=== PATIENT | male | born 1985 | race Caucasian/White ===

== ENCOUNTER 2023-03-22 18:48 | Emergency (ER) | payer OTHER, SELFPAY ==
--- NOTE | ~2023-03-22 | CT_ITS ---
EXAMINATION: CT cervical spine wo con DATE: 03/22/2023 19:33 INDICATION: Neck pain prior cervical spine fracture TECHNIQUE: Computed tomography (CT) of the cervical spine was performed without intravenous contrast. Automated exposure control and iterative reconstruction technique were employed. The dose-length pro duct was 383.16 mGy-cm. COMPARISON: None. FINDINGS: Vertebral Body Alignment: Intact. Craniocervical and atlantoaxial alignment: No significant degenerative change. Alignment intact. Osseous structures/fracture: No evidence of a lytic or blastic process in the visualized spine. No e vidence of acute fracture. Cervical soft tissues: The paraspinal soft tissues planes are maintained. Degenerative changes: No significant degenerative changes. IMPRESSION: No acute fracture or traumatic malalignment in the cervical spine. Reviewed, dictated and finalized at location K.
[2023-03-22 18:56] VITALS: BP 129/78; PULSE 63; RESP 16; TEMP 36.2; O2SAT 100
--- NOTE | 2023-03-22 19:26 | ED.GENADULT ---
HPI - General Adult General Chief complaint: Neck Pain/Injury Stated complaint: sent by with neck pain Time Seen by Provider: 03/22/23 19:08 History of Present Illness HPI narrative: Patient 37-year-old gentleman who presents the emergency department with chief complaint of neck pain patient reports that yesterday he was at work and started having pain in the muscles of his neck the patient states that it is spasm it hurts to move his neck patient reports no weakness in his arms or legs but reports that at the age of 19 he was involved in an injury that he had a C2 fracture that went undiagnosed for many years and is led to chronic neck pain the patient reports that normally he has pain whenever he lifts his arms but today it is a little bit worse than normal and the patient decided to come to the emergency department to be evaluated Related Data Allergies Allergy/AdvReac Type Severity Reaction Status Date / Time No Known Allergies Allergy Verified 03/22/23 19:01 Review of Systems Review of Systems: A 10 system review of systems was completed on the patient and is negative except for what is stated in the HPI. Nursing and ancillary documentation was reviewed. Exam Narrative: GENERAL: Well-appearing, well-nourished, and in no acute distress. HEAD: Normocephalic, atraumatic. EYES: PERRLA and EOMI. ENT: Nares clear, no rhinorrhea or epistaxis. Mucous membranes moist. NECK: Supple. Tenderness to palpation of the paraspinous muscles of the neck there is spasm present CHEST: Clear to auscultation. No respiratory distress. HEART: Regular rate and rhythm. No murmur heard. Normal peripheral pulses. ABDOMEN: Soft, nontender, nondistended, normal active bowel sounds. EXTREMITIES: Normal range of motion. No edema. SKIN: Warm, dry, no rash. NEURO: No focal deficits. Alert and oriented x3. PSYCH: Normal mood and affect. Course Vital Signs Vital signs: Vital Signs Temperature 36.2 C L 03/22/23 18:56 Pulse Rate 63 03/22/23 18:56 Respiratory Rate 16 03/22/23 18:56 Blood Pressure 129/78 03/22/23 18:56 Pulse Oximetry 100 03/22/23 18:56 Oxygen Delivery Room Air 03/22/23 18:56 Temperature 36.2 C L 03/22/23 18:56 Pulse Rate 63 03/22/23 18:56 Respiratory Rate 16 03/22/23 18:56 Blood Pressure 129/78 03/22/23 18:56 Pulse Oximetry 100 03/22/23 18:56 Oxygen Delivery Room Air 03/22/23 18:56 Medical Decision Making MDM Narrative Medical decision making narrative: Differential diagnosis includes torticollis, fracture, muscle spasm CT C-spine showed no evidence of acute abnormality Patient is feeling better after receiving anti-inflammatories muscle relaxers and pain control. Vital Signs Vital Signs: Vital Signs Temperature 36.2 C L 03/22/23 18:56 Pulse Rate 63 03/22/23 18:56 Respiratory Rate 16 03/22/23 18:56 Blood Pressure 129/78 03/22/23 18:56 Pulse Oximetry 100 03/22/23 18:56 Oxygen Delivery Room Air 03/22/23 18:56 Temperature 36.2 C L 03/22/23 18:56 Pulse Rate 63 03/22/23 18:56 Respiratory Rate 16 03/22/23 18:56 Blood Pressure 129/78 03/22/23 18:56 Pulse Oximetry 100 03/22/23 18:56 Oxygen Delivery Room Air 03/22/23 18:56 Discharge Plan Discharge Clinical Impression: Acute torticollis Patient Disposition: Home, Self-Care Condition: Stable Instructions: Antibiotic Form, Spasmodic Torticollis (ED), Neck Pain (ED) Prescriptions: New diclofenac potassium 50 mg tablet 50 mg PO TID PRN (Reason: pain) Qty: 30 0RF prednisone 20 mg tablet 40 mg PO DAILY 5 Days Qty: 10 0RF cyclobenzaprine 10 mg tablet 10 mg PO TID PRN (Reason: muscle spasm) Qty: 21 0RF Follow-up/Referrals: PHYSICIAN,INSPECTOR [Primary Care Provider] - Rinku Pinto MD [Physician] - Time of Disposition: 20:33
[2023-03-22] MEDS: HYDROcodone/acetaminophen (*CRX) 5-325 MG TABLET 1 TAB PO (19:40)
[2023-03-22] MEDS: diazePAM INJ (*CRX) 10 MG/2 ML SYRINGE 5 MG IM (19:41)
[2023-03-22] MEDS: ORPHENADRINE CITRATE 100 MG TABLET.ER PO (19:41)
[2023-03-22] MEDS: KETOROLAC 30 MG/ML VIAL (*BKC) IM (19:41)
[2023-03-22] MEDS: predniSONE 20 MG TABLET 60 MG PO (20:41)
[2023-03-22 20:44] VITALS: BP 124/78; PULSE 65; O2SAT 98
== END 2023-03-22 20:45 | disposition home or self-care (01) ==
PROVIDERS: Emergency Provider Emergency Medicine
DX: M43.6 Torticollis (principal)
CPT/HCPCS: 72125; 96372; 99284; A9270; J1885; J3360; J7512

== ENCOUNTER → 2023-04-19 07:13 | Outpatient (CLI) | payer OTHER, SELFPAY ==
--- NOTE | ~2023-04-19 | MR_ITS ---
EXAMINATION: MR cervical spine wo con DATE: 04/19/2023 07:49 INDICATION: Chronic neck pain and cervical radiculopathy. TECHNIQUE: Magnetic resonance imaging (MRI) of the cervical spine was performed without intravenous c ontrast. Sequences included sagittal T2-weighted FSE, sagittal T2-weighted FS FSE, sagittal T1-weight ed FSE, axial MERGE and axial T2-weighted FSE. COMPARISON: Cervical spine CT dated 03/22/2023 FINDINGS: Bone alignment is normal. Vertebral body heights are normal. Bone marrow signal intensity is normal . Mild disc desiccation and minimal disc height loss from C2-C3 through C6-C7. Cord signal intensity is normal. Cervical soft tissues are unremarkable. The following disc levels are specifically discuss ed: C2-C3: The disc does not extend beyond the endplate margin. There is no uncovertebral joint osteoarth ritis. There is minimal bilateral facet joint osteoarthritis. There is no neural foraminal stenosis. There is no central canal stenosis. C3-C4: The disc does not extend beyond the endplate margin. There is mild bilateral uncovertebral nirmala nt osteoarthritis. There is minimal bilateral facet joint osteoarthritis. There is no neural foramina l stenosis. There is no central canal stenosis. C4-C5: The disc does not extend beyond the endplate margin. There is mild bilateral uncovertebral nirmala nt osteoarthritis. There is mild left facet joint osteoarthritis. There is no neural foraminal stenos is. There is no central canal stenosis. C5-C6: Disc is mildly bulging. There is mild bilateral uncovertebral joint osteoarthritis. There is m ild bilateral facet joint osteoarthritis. There is mild bilateral neural foraminal stenosis. There is minimal central canal stenosis. C6-C7: Disc is mildly bulging with superimposed annular fissure and right paracentral disc protrusion which mildly indents the right ventral surface of the cord. There is no uncovertebral joint osteoart hritis. There is mild bilateral facet joint osteoarthritis. There is no neural foraminal stenosis. Th ere is mild central canal stenosis. C7-T1: The disc does not extend beyond the endplate margin. There is mild bilateral uncovertebral nirmala nt osteoarthritis. There is mild to moderate bilateral facet joint osteoarthritis. There is mild bila teral neural foraminal stenosis. There is no central canal stenosis. IMPRESSION: 1. Mild cervical spondylosis. Reviewed, dictated and finalized at location A.
== END ==
DX: M47.22 Other spondylosis with radiculopathy, cervical region (principal); G89.29 Other chronic pain
CPT/HCPCS: 72141